=== PATIENT | female | born 1990 | race American Indian/Alaskan Native ===

== ENCOUNTER 2017-08-05 09:35 | Emergency (ER) | payer SELFPAY ==
[2017-08-05 09:42] VITALS: BP 123/85
[2017-08-05 10:13] LABS: Basophils % (Auto) 0.3 % (0.0-1.8); Eosinophils % (Auto) 4.5 % (0.0-4.3); Hematocrit 39.4 % (30.3-42.9); Hemoglobin 13.2 gm/dl (10.1-14.3); Mean Corpuscular HGB Conc 34 % (30-34); Mean Corpuscular Hemoglobin 28 pg (28-32); Mean Corpuscular Volume 84 fl (79-97); Platelet Count 264 K/mm3 (140-440); Red Blood Count 4.69 M/mm3 (3.65-5.03); Red Cell Distribution Width 14.5 % (13.2-15.2); White Blood Count 6.3 K/mm3 (4.5-11.0)
[2017-08-05 10:31] LABS: Alanine Aminotransferase 13 units/L (7-56); Albumin 4.1 g/dL (3.9-5); Albumin/Globulin Ratio 1.3 %; Alkaline Phosphatase 69 units/L (35-129); BUN/Creatinine Ratio 17; Blood Urea Nitrogen 12 mg/dL (7-17); Calcium 9.3 mg/dL (8.4-10.2); Carbon Dioxide 29 mmol/L (22-30); Glucose 78 mg/dL (65-100); Lipase 48 units/L (13-60); Total Protein 7.3 g/dL (6.3-8.2)
[2017-08-05 10:32] LABS: Anion Gap 14 mmol/L; Chloride 106.2 mmol/L (98-107); Potassium 4.3 mmol/L (3.6-5.0); Sodium 145 mmol/L (137-145)
[2017-08-05 11:10] LABS: Bacteria,Urine 2+ /HPF (Negative); Bilirubin,Urine NEG (Negative); Blood,Urine SM (Negative); Ketones,Urine NEG (Negative); Leukocyte Esterase,Urine LG (Negative); Mucus,Urine 3+ /HPF; Nitrite,Urine NEG (Negative); Urobilinogen,Urine < 2.0 mg/dL (<2.0)
== END 2017-08-05 10:00 | disposition left against medical advice (07) ==
LOC: ED 09:35
DX: N89.8 Other specified noninflammatory disorders of vagina (principal); Z53.21 Procedure and treatment not carried out due to patient leaving prior to being seen by health care provider
CPT/HCPCS: 36415; 80053; 81001; 81025; 83690; 85025